=== PATIENT | male | born 1950 | race Hispanic/Latino ===

== ENCOUNTER 2018-07-14 14:07 | Emergency (ER) | payer OTHER ==
[2018-07-14 14:34] LABS: BASOPHILS % (AUTO) 0.4 % (0.0-5.0); EOSINOPHILS % (AUTO) 3.8 % (0.0-8.0); LYMPHOCYTES % (AUTO) 30.9 % (21.0-51.0); MEAN CORPUSCULAR HEMOGLOBIN 32.3 pg (27.0-33.0); MEAN CORPUSCULAR HGB CONC 34.4 g/dL (32.0-36.0); MEAN CORPUSCULAR VOLUME 93.7 fL (79-99); MONOCYTES % (AUTO) 5.7 % (3.0-13.0); NEUTROPHILS % (AUTO) 59.2 % (40.0-77.0); PLATELET COUNT (AUTO) 204 K/uL (130-400); RED BLOOD CELL COUNT(AUTO) 4.48 MIL/uL (4.50-6.20); RED CELL DISTRIBUTION WIDTH 13.2 % (11.0-15.5); WHITE BLOOD COUNT (AUTO) 7.9 K/uL (4.8-10.8)
[2018-07-14 14:48] LABS: CREATININE 0.8 mg/dL (0.5-1.5); POTASSIUM 3.9 mmol/L (3.5-5.1)
[2018-07-14 14:52] LABS: BILIRUBIN,TOTAL 0.4 mg/dL (0.2-1.0); TOTAL PROTEIN, SERUM 7.3 g/dL (6.0-8.3)
[2018-07-14] MEDS ORDERED: 0.9% SODIUM CHLORIDE 1000 ML IV BAG IV ONE (15:09)
== END 2018-07-14 17:14 | disposition home or self-care (01) ==
LOC: EDH 14:07
DX: E86.9 Volume depletion, unspecified (principal); R19.7 Diarrhea, unspecified; Z95.1 Presence of aortocoronary bypass graft; Z98.890 Other specified postprocedural states; Z91.041 Radiographic dye allergy status; Z88.8 Allergy status to other drugs, medicaments and biological substances
CPT/HCPCS: 36415; 80053; 85025; 96360; 99283; J7030

== ENCOUNTER 2018-09-05 05:30 | Day surgery (SDC) | payer OTHER ==
[2018-09-05] VITALS (8 sets, daily range): BP systolic 75–128; BP diastolic 31–74
[~2018-09-05] VITALS: Ht 177.8 cm; Wt 88.6 kg
[2018-09-05] MEDS ORDERED: SODIUM CHLORIDE 0.9% 1000ML 1,000 ML IV ONE (06:07)
[2018-09-05 06:17] LABS: INR 1.07 (0.85-1.15); PROTHROMBIN TIME 11.2 SEC (9.6-11.6)
[2018-09-05] MEDS ORDERED: PROPOFOL 10 MG/ML 20ML VIAL IV ONE (06:31)
[2018-09-05] MEDS ORDERED: LIDOCAINE HCL 1% 20 ML VIAL ONE (06:32)
[2018-09-05] MEDS ORDERED: LIDOCAINE HCL-MPF 2% 5ML VIAL ONE (06:32)
[2018-09-05] MEDS ORDERED: PHENYLEPHRINE HCL 10 MG/ML 1ML VIAL IV ONE (06:36)
== END 2018-09-05 07:40 | disposition home or self-care (01) ==
LOC: ENDO 05:30 → DAH 05:30 → ENDO 07:40
PROVIDERS: ATTEND Internal Medicine
DX: K52.9 Noninfective gastroenteritis and colitis, unspecified (principal); K21.0 Gastro-esophageal reflux disease with esophagitis; K31.89 Other diseases of stomach and duodenum; K57.30 Diverticulosis of large intestine without perforation or abscess without bleeding; K64.0 First degree hemorrhoids; E11.9 Type 2 diabetes mellitus without complications; D64.9 Anemia, unspecified; I10 Essential (primary) hypertension; M19.90 Unspecified osteoarthritis, unspecified site; E78.5 Hyperlipidemia, unspecified; I61.9 Nontraumatic intracerebral hemorrhage, unspecified; I95.9 Hypotension, unspecified; Z98.890 Other specified postprocedural states; Z95.0 Presence of cardiac pacemaker; Z82.49 Family history of ischemic heart disease and other diseases of the circulatory system; Z80.9 Family history of malignant neoplasm, unspecified; Z87.891 Personal history of nicotine dependence; Z86.010 Personal history of colon polyps; Z79.82 Long term (current) use of aspirin; Z79.84 Long term (current) use of oral hypoglycemic drugs; Z79.899 Other long term (current) drug therapy; Z95.4 Presence of other heart-valve replacement; K29.50 Unspecified chronic gastritis without bleeding
CPT/HCPCS: 36415; 43239; 45380; 82948 ×2; 85610; 88305; 88313; 88342; 93005; J2370; J2704; J3490; J7030

== ENCOUNTER 2018-09-13 12:27 | Emergency (ER) | payer OTHER ==
[~2018-09-13] VITALS: Ht 177.8 cm; Wt 88.0 kg
[2018-09-13 12:41] LABS: BASOPHILS % (AUTO) 0.5 % (0.0-5.0); EOSINOPHILS % (AUTO) 3.2 % (0.0-8.0); HEMATOCRIT 38.8 % (42-54); LYMPHOCYTES % (AUTO) 27.5 % (21.0-51.0); MEAN CORPUSCULAR HEMOGLOBIN 31.4 pg (27.0-33.0); MEAN CORPUSCULAR HGB CONC 33.9 g/dL (32.0-36.0); MEAN CORPUSCULAR VOLUME 92.8 fL (79-99); MONOCYTES % (AUTO) 4.3 % (3.0-13.0); NEUTROPHILS % (AUTO) 64.5 % (40.0-77.0); PLATELET COUNT (AUTO) 265 K/uL (130-400); RED BLOOD CELL COUNT(AUTO) 4.18 MIL/uL (4.50-6.20); RED CELL DISTRIBUTION WIDTH 13.7 % (11.0-15.5); WHITE BLOOD COUNT (AUTO) 8.2 K/uL (4.8-10.8)
[2018-09-13] MEDS ORDERED: ASPIRIN 325 MG TABLET ONE (12:42)
[2018-09-13 12:52] LABS: CREATININE 0.9 mg/dL (0.5-1.5); POTASSIUM 3.7 mmol/L (3.5-5.1)
[2018-09-13 12:53] LABS: INR 2.66 (0.85-1.15); PARTIAL THROMBOPLASTIN TIME 40.1 SEC (26.3-35.5); PROTHROMBIN TIME 27.4 SEC (9.6-11.6)
[2018-09-13 13:05] LABS: ALBUMIN 3.7 g/dL (3.5-5.0); BILIRUBIN,TOTAL 0.3 mg/dL (0.2-1.0); TOTAL PROTEIN, SERUM 6.8 g/dL (6.0-8.3)
[2018-09-13] MEDS ORDERED: SODIUM CHLORIDE 0.9% 1000ML 1,000 ML IV SCH (15:40)
[2018-09-13] MEDS ORDERED: HYDRALAZINE HCL 20 MG/ML VIAL IV PRN (15:45)
[2018-09-13] MEDS ORDERED: ONDANSETRON HCL 4 MG/2 ML VIAL IV PRN (15:45)
[2018-09-13] MEDS ORDERED: ACETAMINOPHEN 325 MG TAB PO PRN ×2 (15:45)
[2018-09-13] MEDS ORDERED: FAMOTIDINE/PF 20 MG/2 ML VIAL IV SCH (21:00)
== END 2018-09-13 17:29 | disposition left against medical advice (07) ==
LOC: EDH 12:27
DX: I95.9 Hypotension, unspecified (principal); R07.89 Other chest pain; Z95.1 Presence of aortocoronary bypass graft; Z91.041 Radiographic dye allergy status; Z88.8 Allergy status to other drugs, medicaments and biological substances; Z87.891 Personal history of nicotine dependence
CPT/HCPCS: 36415; 70450; 71045; 80053; 82550; 83874; 84484; 85025; 85610; 85730; 93005

== ENCOUNTER → 2018-11-29 | Outpatient (CLI) | payer OTHER ==
--- NOTE | 2018-11-29 10:00 | NUR ---
MBSS COMPLETED. -S/S OF ASPIRATION. RECOMMEND REGULAR TEXTURE, THIN LIQUIDS; PILLS WHOLE WITH LIQUIDS. Addendum: 11/30/18 at 0837 by GAVIOTA GALLEGOS, [facility] Amended: Links added.
== END | disposition home or self-care (01) ==
LOC: RAH 08:53
PROVIDERS: ATTEND Internal Medicine Gastroenterology
DX: K76.0 Fatty (change of) liver, not elsewhere classified (principal); N28.1 Cyst of kidney, acquired; R13.10 Dysphagia, unspecified; I10 Essential (primary) hypertension; E11.9 Type 2 diabetes mellitus without complications; E78.5 Hyperlipidemia, unspecified
CPT/HCPCS: 74230; 76700; 92611

== ENCOUNTER 2018-12-25 15:17 | Observation (INO) | payer OTHER ==
[~2018-12-25] VITALS: Ht 177.8 cm; Wt 88.6 kg
[2018-12-25 15:31] LABS: BASOPHILS % (AUTO) 0.5 % (0.0-5.0); EOSINOPHILS % (AUTO) 1.9 % (0.0-8.0); HEMATOCRIT 42.2 % (42-54); LYMPHOCYTES % (AUTO) 34.9 % (21.0-51.0); MEAN CORPUSCULAR HGB CONC 34.2 g/dL (32.0-36.0); MEAN CORPUSCULAR VOLUME 93.7 fL (79-99); MONOCYTES % (AUTO) 5.5 % (3.0-13.0); NEUTROPHILS % (AUTO) 57.2 % (40.0-77.0); PLATELET COUNT (AUTO) 193 K/uL (130-400); RED CELL DISTRIBUTION WIDTH 13.7 % (11.0-15.5)
[2018-12-25 15:40] LABS: POTASSIUM 3.4 mmol/L (3.5-5.1)
[2018-12-25 15:43] LABS: INR 1.59 (0.85-1.15); PARTIAL THROMBOPLASTIN TIME 32.8 SEC (26.3-35.5); PROTHROMBIN TIME 16.5 SEC (9.6-11.6)
[2018-12-25 15:45] LABS: ALBUMIN 3.7 g/dL (3.5-5.0); BILIRUBIN,TOTAL 0.3 mg/dL (0.2-1.0); TOTAL PROTEIN, SERUM 6.7 g/dL (6.0-8.3)
[2018-12-25] MEDS ORDERED: SODIUM CHLORIDE 0.9% 250 ML IV ONE ×2 (15:47→16:41)
[2018-12-25] MEDS ORDERED: IOHEXOL-350 75 ML VIAL IV ONE (15:55)
[2018-12-25] MEDS: SODIUM CHLORIDE 0.9% 1000ML 1,000 ML IV SCH (16:42)
[2018-12-25] MEDS ORDERED: ONDANSETRON HCL 4 MG/2 ML VIAL IV PRN (16:45)
[2018-12-25] MEDS ORDERED: ACETAMINOPHEN 325 MG TAB PO PRN ×2 (16:45)
[2018-12-25] MEDS ORDERED: ENOXAPARIN SODIUM 30 MG/0.3 ML SQ ONE (17:26)
[2018-12-25] MEDS ORDERED: SODIUM CHLORIDE 0.9% 1000ML 1,000 ML IV ONE (17:27)
[2018-12-25] MEDS ORDERED: WARFARIN SODIUM 5 MG TAB PO ONE (21:00)
[2018-12-25] MEDS ORDERED: WARFARIN SODIUM 5 MG TAB ONE (21:12)
[2018-12-25 21:25] VITALS: BP 138/78
[2018-12-25] MEDS: FAMOTIDINE/PF 20 MG/2 ML VIAL IV SCH (21:39)
[2018-12-26] VITALS: BP 119/68
[2018-12-26 03:25] LABS: APPEARANCE,URINE Clear (CLEAR); BILIRUBIN,URINE Negative (NEGATIVE); COLOR,URINE Yellow (YELLOW); GLUCOSE, URINE (UA) TRACE mg/dL (NEGATIVE); KETONES,URINE Negative (NEGATIVE); LEUKOCYTE ESTERASE ,URINE Negative (NEGATIVE); NITRATE,URINE Negative (NEGATIVE); OCCULT BLOOD,URINE Negative (NEGATIVE); PH,URINE 6.5 (5.0-8.0); PROTEIN,URINE Negative (NEGATIVE)
[2018-12-26 03:45] LABS: BACTERIA,URINE Rare /HPF (None Seen); RBC,URINE None Seen /HPF (0-1); WBC,URINE 0-1 /HPF (0-1)
[2018-12-26 04:00] VITALS: BP 128/80
[2018-12-26 04:52] LABS: HEMATOCRIT 40.8 % (42-54); MEAN CORPUSCULAR HEMOGLOBIN 32.3 pg (27.0-33.0); MEAN CORPUSCULAR HGB CONC 34.4 g/dL (32.0-36.0); MEAN CORPUSCULAR VOLUME 93.9 fL (79-99); NUCLEATED RED BLOOD CELLS 0.1 % (0.0-0.19); PLATELET COUNT (AUTO) 162 K/uL (130-400); RED BLOOD CELL COUNT(AUTO) 4.34 MIL/uL (4.50-6.20); RED CELL DISTRIBUTION WIDTH 13.7 % (11.0-15.5)
[2018-12-26 04:57] LABS: INR 2.23 (0.85-1.15); PROTHROMBIN TIME 23.1 SEC (9.6-11.6)
[2018-12-26 05:08] LABS: ALBUMIN 3.3 g/dL (3.5-5.0); BILIRUBIN,DIRECT 0.1 mg/dL (0.0-0.3); BILIRUBIN,TOTAL 0.4 mg/dL (0.2-1.0); CREATININE 0.8 mg/dL (0.5-1.5); POTASSIUM 3.7 mmol/L (3.5-5.1); TOTAL PROTEIN, SERUM 6.2 g/dL (6.0-8.3)
[2018-12-26 05:20] LABS: BASOPHILS % (MANUAL) 1 % (0-2); EOSINOPHILS % (MANUAL) 1 % (1-6); LYMPHOCYTES % (MANUAL) 41 % (22-44); MAN.DIFF COMMENT-IMPRESSION MANUAL DIFFERENTIAL; MONOCYTES % (MANUAL) 3 % (2-9); SEGMENTED NEUTROPHILS % 54 % (40-70)
[2018-12-26 05:48] LABS: ERYTHROCYTE SEDIMENTATION RATE 1 MM/HR (0-20)
[2018-12-26 06:17] LABS: HEMOGLOBIN A1C 6.7 % (4.0-6.0)
[2018-12-26 07:00] VITALS: BP 135/76
[2018-12-26] MEDS: SODIUM CHLORIDE 0.9% 1000ML 1,000 ML IV SCH ×2 (07:33→22:42)
[2018-12-26] MEDS: FAMOTIDINE/PF 20 MG/2 ML VIAL IV SCH ×2 (08:28→22:37)
[2018-12-26] MEDS: ASPIRIN 81MG TAB.CHEW PO SCH (08:29)
[2018-12-26] MEDS ORDERED: METO-409 PO (08:55)
[2018-12-26] MEDS ORDERED: AMMO57LO TP (08:55)
[2018-12-26] MEDS ORDERED: LORA10CA9 PO (08:55)
[2018-12-26] MEDS ORDERED: DORZ10DR10 OP (08:55)
[2018-12-26] MEDS ORDERED: GLIP10TA9 PO (08:55)
[2018-12-26] MEDS ORDERED: EMPA25TA PO (08:55)
[2018-12-26] MEDS ORDERED: LIDO700A30 TP (08:55)
[2018-12-26] MEDS ORDERED: [UNRECOGNIZED DRUG - OTHER] PO (08:55)
[2018-12-26] MEDS ORDERED: PANT40TA25 PO (08:55)
[2018-12-26] MEDS ORDERED: AEC81 PO (08:55)
[2018-12-26] MEDS ORDERED: AREDS PO (08:55)
[2018-12-26] MEDS ORDERED: WARF2.5T85 PO (08:55)
[2018-12-26] MEDS ORDERED: ALFU10TA18 PO (08:55)
[2018-12-26] MEDS ORDERED: LOSA50TA64 PO (08:55)
[2018-12-26] MEDS ORDERED: MULTI VIT PO (08:55)
[2018-12-26] MEDS ORDERED: SIMV80TA91 PO (08:55)
[2018-12-26] MEDS ORDERED: CARB15DR OP (08:55)
[2018-12-26] MEDS ORDERED: DICL100G31 TP (08:55)
[2018-12-26] MEDS ORDERED: DOCU100C33 PO (08:55)
[2018-12-26] MEDS ORDERED: GABA-531 PO (08:55)
[2018-12-26] MEDS ORDERED: METF-526 PO (08:56)
[2018-12-26] MEDS ORDERED: MIRT30TA6 PO (08:56)
[2018-12-26] MEDS ORDERED: HYDR-4068 PO (08:56)
[2018-12-26] MEDS ORDERED: WARF-57 PO (08:56)
[2018-12-26] MEDS ORDERED: ENOXAPARIN SODIUM 30 MG/0.3 ML SQ SCH (09:00)
--- NOTE | 2018-12-26 09:00 | NUR ---
INITIAL DISCUSSED DC WITH PATIENT AND BROTHER IN ROOM, PT LIVES W SPOUSE,HOME IS SAFE AND ACCESSIBLE, NO PROVIDER, JAILENE MIN SOMETIMES, SPOUSE DRIVES, DC P IS HOME WHEN CLEARED BY NEUROLOGY. CM TO FOLLOW Addendum: 12/27/18 at 1814 by ADRIANA ALY RN CM Amended: Links added.
[2018-12-26] MEDS ORDERED: HYDROCODONE/ACETAMINOPHEN 10/325 MG TAB PO PRN (09:30)
[2018-12-26] MEDS ORDERED: MIRTAZAPINE 15 MG TABLET PO PRN (09:30)
[2018-12-26] MEDS: PSYLLIUM SEED 1 EACH PACKET PO SCH (09:45)
--- NOTE | 2018-12-26 11:00 | NUR ---
DYSPHAGIA EVAL COMPLETED. -S/S OF ASPIRATION. RECOMMEND REGULAR TEXTURE, THIN LIQUIDS, PILLS WHOLE WITH LIQUIDS. Addendum: 12/26/18 at 1301 by GAVIOTA GALLEGOS, [facility] Amended: Links added.
[2018-12-26] MEDS: LOSARTAN 50 MG TABLET PO SCH (11:11)
[2018-12-26 12:00] VITALS: BP 131/81
[2018-12-26] MEDS: ARTIFICAL TEARS SOL 15 ML OP SCH ×3 (13:12→21:00)
[2018-12-26] MEDS: GABAPENTIN 300 MG CAPSULE PO SCH ×2 (13:12→22:41)
[2018-12-26 16:00] VITALS: BP 116/52
[2018-12-26 20:00] VITALS: BP 113/66
[2018-12-26] MEDS ORDERED: LOSARTAN 50 MG TABLET PO SCH (21:00)
[2018-12-26] MEDS ORDERED: SIMVASTATIN 20 MG TABLET PO SCH (21:00)
[2018-12-26] MEDS: METOPROLOL TARTRATE 25 MG TAB PO SCH (22:37)
[2018-12-26] MEDS: DORZOLAMIDE HCL/TIMOLOL MALEAT DROPS 10 ML BOTTLE OP SCH (22:37)
[2018-12-27] VITALS: BP 138/72
[2018-12-27 04:00] VITALS: BP 134/72
[2018-12-27 05:58] LABS: BASOPHILS % (AUTO) 0.5 % (0.0-5.0); EOSINOPHILS % (AUTO) 2.8 % (0.0-8.0); HEMATOCRIT 41.1 % (42-54); LYMPHOCYTES % (AUTO) 33.2 % (21.0-51.0); MEAN CORPUSCULAR HGB CONC 34.1 g/dL (32.0-36.0); MONOCYTES % (AUTO) 5.3 % (3.0-13.0); NEUTROPHILS % (AUTO) 58.2 % (40.0-77.0); NUCLEATED RED BLOOD CELLS 0.1 % (0.0-0.19); PLATELET COUNT (AUTO) 189 K/uL (130-400); RED BLOOD CELL COUNT(AUTO) 4.38 MIL/uL (4.50-6.20); RED CELL DISTRIBUTION WIDTH 13.8 % (11.0-15.5); WHITE BLOOD COUNT (AUTO) 6.5 K/uL (4.8-10.8)
[2018-12-27 06:31] LABS: ALBUMIN 3.3 g/dL (3.5-5.0); BILIRUBIN,TOTAL 0.2 mg/dL (0.2-1.0); CREATININE 0.8 mg/dL (0.5-1.5); POTASSIUM 3.7 mmol/L (3.5-5.1); TOTAL PROTEIN, SERUM 6.4 g/dL (6.0-8.3)
[2018-12-27 07:00] VITALS: BP 145/80
[2018-12-27] MEDS ORDERED: GLIPIZIDE 5 MG TABLET PO SCH (07:30)
[2018-12-27] MEDS ORDERED: PANTOPRAZOLE SODIUM 40 MG TABLET.DR PO SCH (07:30)
[2018-12-27] MEDS ORDERED: METFORMIN HCL 500 MG TAB.SR.24H PO SCH (08:00)
[2018-12-27] MEDS: ARTIFICAL TEARS SOL 15 ML OP SCH ×3 (08:10→17:00)
[2018-12-27] MEDS: PSYLLIUM SEED 1 EACH PACKET PO SCH (08:11)
[2018-12-27] MEDS: METOPROLOL TARTRATE 25 MG TAB PO SCH (08:14)
[2018-12-27] MEDS: LOSARTAN 50 MG TABLET PO SCH (08:15)
[2018-12-27] MEDS: FAMOTIDINE/PF 20 MG/2 ML VIAL IV SCH (08:18)
[2018-12-27] MEDS: GABAPENTIN 300 MG CAPSULE PO SCH ×2 (08:18→13:35)
[2018-12-27] MEDS: DORZOLAMIDE HCL/TIMOLOL MALEAT DROPS 10 ML BOTTLE OP SCH (08:23)
[2018-12-27] MEDS: SODIUM CHLORIDE 0.9% 1000ML 1,000 ML IV SCH (08:31)
[2018-12-27] MEDS: ASPIRIN 81MG TAB.CHEW PO SCH (09:00)
[2018-12-27] MEDS ORDERED: LIDOCAINE 5% TOPICAL PATCH TP SCH (09:00)
[2018-12-27] MEDS ORDERED: ALFUZOSIN 10 MG PO SCH (09:00)
[2018-12-27] MEDS ORDERED: AREDS PO SCH (09:00)
[2018-12-27] MEDS ORDERED: WARFARIN SODIUM 5 MG TAB PO SCH (09:00)
[2018-12-27] MEDS ORDERED: EMPAGLIFLOZIN 25 MG PO SCH (09:00)
[2018-12-27] MEDS ORDERED: ASPIRIN 81 MG EC TAB PO SCH (09:00)
[2018-12-27] MEDS ORDERED: DICLOFENAC TP PRN (09:00)
[2018-12-27] MEDS ORDERED: AMLACTIN TP SCH (09:00)
[2018-12-27] MEDS ORDERED: LORATADINE 10 MG TABLET PO SCH (09:00)
[2018-12-27] MEDS ORDERED: DOCUSATE SODIUM 100 MG CAP PO SCH (09:00)
--- NOTE | 2018-12-27 10:00 | NUR ---
AMBULATING WITH SPOUSE IN THE HALLWAY, SEEMS TO TOLERATED IT WELL.
[2018-12-27 12:00] VITALS: BP 155/87
[2018-12-27] MEDS ORDERED: PANT40TA25 PO (14:58)
--- NOTE | 2018-12-27 16:24 | NUR ---
DIET EDUCATION MIKA provided Vitamin K and Warfarin Diet Education (Latvian). MIKA reviewed reference materials and handouts with Pt. Pt with no questions at this time but did verbalize understanding. Pt encouraged to notify as questions or concerns arise. Addendum: 12/27/18 at [address] Amended: Links added.
[2018-12-27] MEDS ORDERED: FLU VACC QS2019-20 36MOS UP/PF 60 MCG/0.5 ML ML IM ONE (17:30)
--- NOTE | 2018-12-27 18:02 | NUR ---
DISCHARGE INSTRUCTIONS WERE GIVEN TO THE PATIENT TO THE PATIENT AND HE WAS REMINDED OF THE SCHEDULED APPOINTMENT, HE VERBALIZED UNDERSTANDING. FLU VACCINE WAS ADMINISTERED, AND IV ACCESS WAS REMOVED WITHOUT PROBLEM. LEFT THE UNIT IN STABLE CONDITION VIA W/C ASSISTED BY FLOOR 911 EMERGENCY DISPATCHER.
[2018-12-28] MEDS ORDERED: WARFARIN SODIUM 2.5 MG TAB PO SCH (09:00)
== END 2018-12-27 17:50 | disposition home or self-care (01) ==
LOC: EDH 15:17 → EDHIP 16:42 → 3AH 21:39
PROVIDERS: ADMIT Family Medicine; ATTEND Family Medicine
DX: R47.81 Slurred speech (principal); E87.6 Hypokalemia; I10 Essential (primary) hypertension; R41.82 Altered mental status, unspecified; G81.91 Hemiplegia, unspecified affecting right dominant side; I25.10 Atherosclerotic heart disease of native coronary artery without angina pectoris; J44.9 Chronic obstructive pulmonary disease, unspecified; G30.9 Alzheimer's disease, unspecified; F02.80 Dementia in other diseases classified elsewhere, unspecified severity, without behavioral disturbance, psychotic disturbance, mood disturbance, and anxiety; Z86.73 Personal history of transient ischemic attack (TIA), and cerebral infarction without residual deficits; Z95.0 Presence of cardiac pacemaker; Z95.1 Presence of aortocoronary bypass graft; Z95.2 Presence of prosthetic heart valve; Z79.899 Other long term (current) drug therapy; Z79.01 Long term (current) use of anticoagulants; Z82.49 Family history of ischemic heart disease and other diseases of the circulatory system; Z83.3 Family history of diabetes mellitus; Z23 Encounter for immunization
CPT/HCPCS: 36415 ×3; 70450; 71045; 80053 ×3; 80061; 81001; 82948 ×2; 83036; 84484; 85025 ×3; 85610 ×2; 85651; 85730; 92610; 93005; 93306; 93880; 96361 ×2; 96374; 96376 ×2; 97039 ×2; 97116; 97161; 99291; G0008; G0378 ×49; G8978; G8979; G8980; G8981; G8982; G8983; J1650; J3490 ×4; J7030 ×5; Q2035; 80076; Q9967

== ENCOUNTER 2020-08-20 06:20 | Day surgery (SDC) | payer OTHER ==
[~2020-08-20] VITALS: Ht 177.8 cm; Wt 88.5 kg
[~2020-08-20 06:20] MED LIST: AEC81 PO; ALFU10TA9 PO; AMMO57LO TP; AREDS PO; CARB15DR OP; DICL100G31 TP; DOCU100C33 PO; DORZ10DR10 OP; EMPA25TA PO; GABA-531 PO; GLIP10TA9 PO; HYDR-4068 PO; LIDO700A30 TP; LORA10CA9 PO; LOSA50TA64 PO; METF-526 PO; METO-409 PO; MIRT30TA6 PO; MULTI VIT PO; PANT40TA54 PO; SIMV80TA91 PO; SODIUM CHLORIDE 0.9% 1000ML 1,000 ML IV ONE; WARF-57 PO; WARF2.5T85 PO; [UNRECOGNIZED DRUG - OTHER] PO
[2020-08-20 06:49] VITALS: BP 123/74
[2020-08-20] MEDS ORDERED: SODIUM CHLORIDE 0.9% 1000ML 1,000 ML IV ONE (07:48)
[2020-08-20 07:52] LABS: INR 1.1 (0.85-1.15); PROTHROMBIN TIME 11.9 SEC (9.6-11.6)
[2020-08-20] MEDS ORDERED: PROPOFOL 10 MG/ML 20ML VIAL IV ONE (08:59)
[2020-08-20] MEDS ORDERED: ENOX30DI4 SQ (09:35)
== END 2020-08-20 10:05 ==
LOC: DAH 06:20
PROVIDERS: ATTEND Internal Medicine Gastroenterology
DX: D62 Acute posthemorrhagic anemia (principal); K29.50 Unspecified chronic gastritis without bleeding; K31.89 Other diseases of stomach and duodenum; K92.1 Melena; K21.9 Gastro-esophageal reflux disease without esophagitis; R13.12 Dysphagia, oropharyngeal phase; R63.3 Feeding difficulties; R19.7 Diarrhea, unspecified; K29.70 Gastritis, unspecified, without bleeding; E11.9 Type 2 diabetes mellitus without complications; Z86.73 Personal history of transient ischemic attack (TIA), and cerebral infarction without residual deficits; I10 Essential (primary) hypertension; E78.5 Hyperlipidemia, unspecified; M19.90 Unspecified osteoarthritis, unspecified site; Z79.01 Long term (current) use of anticoagulants; Z79.82 Long term (current) use of aspirin; Z79.899 Other long term (current) drug therapy; Z20.822 Contact with and (suspected) exposure to COVID-19
CPT/HCPCS: 36415; 43239; 82948 ×2; 85610; 93005; A4215 ×2; A4221; A4222; A4223; A4606; A4620; A4657; A4663; C9803; J2704; J7030 ×2; U0003

== ENCOUNTER → 2023-10-14 | Outpatient (CLI) | payer OTHER ==
[~2023-10-14] MED LIST changes: +ALFU10TA46 PO; -ALFU10TA9 PO; -AMMO57LO TP; +AMOX1TAB16 PO; -AREDS PO; +BUPR75TA8 PO; +CALC0.5C11 PO; -CARB15DR OP; +CYAN100099 PO; -DICL100G31 TP; +DICL100G60 TP; -DORZ10DR10 OP; +DOXY100T2 PO; +FERR-72 PO; -GABA-531 PO; +GABA300S3 PO; -HYDR-4068 PO; +ICOS1CAP2 PO; +IOHEXOL 350 MG/ML 100ML INFUS..BTL IV ONE; +ISOS10TA8 PO; -LIDO700A30 TP; -LORA10CA9 PO; -LOSA50TA64 PO; +METF-444 PO; -METF-526 PO; +METO-391 PO; -METO-409 PO; +MIRT-93 PO; -MIRT30TA6 PO; -MULTI VIT PO; -PANT40TA54 PO; +PSYL660P17 PO; +ROSU20TA73 PO; -SIMV80TA91 PO; -SODIUM CHLORIDE 0.9% 1000ML 1,000 ML IV ONE; +VITA1CAP85 PO; -[UNRECOGNIZED DRUG - OTHER] PO
== END | disposition home or self-care (01) ==
LOC: RAH 09:10
PROVIDERS: ATTEND Internal Medicine Cardiovascular Disease
DX: I20.9 Angina pectoris, unspecified (principal)
CPT/HCPCS: Q9967